=== PATIENT | female | born 1990 | race Caucasian/White ===

== ENCOUNTER 2018-11-08 14:25 | Inpatient (IN) | payer BC, MEDICAID ==
[~2018-11-08] VITALS: Ht 157.5 cm; Wt 120.0 kg
[~2018-11-08 14:25] MED LIST: IBUP-1222 PO; METH250T3 PO; METH500T11 PO; OXYC-302 PO; PREN1TAB60 PO
[2018-11-08] MEDS ORDERED: FENTANYL/BUPIV./NS/PF 250 ML EPIDCONT SCH (15:01)
[2018-11-08] MEDS ORDERED: LACTATED RINGERS 1,000 ML IV SCH ×2 (15:01)
[2018-11-08] MEDS ORDERED: OXYTOCIN 30U/ 0.9% NaCL 500ML 500 ML IV ONE (15:01)
[2018-11-08] MEDS ORDERED: OXYTOCIN 30U/ 0.9% NaCL 500ML 500 ML IV PRN (15:01)
[2018-11-08] MEDS ORDERED: D5%-LACTATED RINGERS 1,000 ML IV SCH (15:01)
[2018-11-08 15:29] LABS: BASOPHILS # (AUTO) 0.02 x10^3/uL (0-0.1); BASOPHILS % (AUTO) 0 % (0-1); EOSINOPHILS # (AUTO) 0.02 x10^3/uL (0-0.4); EOSINOPHILS % (AUTO) 0 % (1-7); LYMPHOCYTES # (AUTO) 2.24 x10^3/uL (1-3.4); LYMPHOCYTES % (AUTO) 13 % (22-44); MD NO; MEAN CORPUSCULAR HEMOGLOBIN 27.1 pg (27.0-34.8); MEAN CORPUSCULAR VOLUME 79.7 fL (80-100); MEAN PLATELET VOLUME 10.3 fL (7.4-10.4); MONOCYTES # (AUTO) 0.64 x10^3/uL (0.2-0.8); MONOCYTES % (AUTO) 4 % (2-9); NEUTROPHILS # (AUTO) 14.62 x10^3/uL (1.8-6.8); NEUTROPHILS % (AUTO) 83 % (42-75); PLATELET COUNT 220 x10^3/uL (130-400); RED BLOOD COUNT 4.75 x10^6/uL (3.82-5.3); RED CELL DISTRIBUTION WIDTH 14.7 % (9.6-15.2)
[2018-11-08 15:30] LABS: MICROSCOPIC INDICATED
[2018-11-08] MEDS ORDERED: MISOPROSTOL 25 MCG TABLET VG PRN (15:30)
[2018-11-08] MEDS ORDERED: ONDANSETRON 2MG/ML, 2ML IVPush PRN (15:30)
[2018-11-08] MEDS ORDERED: PENICILLIN GK 5,000,000 UNITS in DEXTROSE 5% 100 ML IVPB ONE (15:30)
[2018-11-08] MEDS ORDERED: FENTANYL PF 100 MCG/2ML IV PRN (15:30)
[2018-11-08] MEDS ORDERED: LACTATED RINGERS 1,000 ML IVBOLUS PRN (15:30)
[2018-11-08] MEDS ORDERED: FENTANYL PF 500 MCG, BUPIVACAINE/PF 0.5%, 30ML 62.5 ML in SODIUM CHLORIDE 0.9% 177.5 ML EPIDCONT SCH (15:30)
[2018-11-08] MEDS ORDERED: NEWBORN KIT ONE (15:34)
[2018-11-08] MEDS ORDERED: LIDOCAINE 1%, 20ML ONE (15:35)
[2018-11-08] MEDS ORDERED: MISOPROSTOL 200 MCG TABLET ONE (15:35)
[2018-11-08] MEDS ORDERED: OXYTOCIN 30U/ 0.9% NaCL 500ML 500 ML ONE (15:35)
[2018-11-08] MEDS ORDERED: MISOPROSTOL 25 MCG TABLET ONE (15:39)
[2018-11-08 15:42] LABS: ALANINE AMINOTRANSFERASE 32 U/L (12-78); ALBUMIN 2.6 g/dL (3.4-5.0); ANION GAP 9 mmol/L (5-15); CHLORIDE 109 mmol/L (98-107); CREATININE 0.44 mg/dL (0.55-1.02)
[2018-11-08 15:44] LABS: ALKALINE PHOSPHATASE 123 U/L (45-117); BILIRUBIN,TOTAL 0.1 mg/dL (0.2-1.0); TOTAL PROTEIN 6.2 g/dL (6.4-8.2)
[2018-11-08 15:54] VITALS: BP 170/102
[2018-11-08 15:54] LABS: BILIRUBIN, DIRECT < 0.1 mg/dL (0.1-0.2)
[2018-11-08] MEDS ORDERED: AMLO-335 PO (17:06)
[2018-11-08] MEDS ORDERED: ASPI-515 PO (17:06)
[2018-11-08] MEDS ORDERED: FERR324T5 PO (17:07)
[2018-11-08] MEDS ORDERED: FLUCONAZOLE 100 MG TABLET PO ONE (18:00)
[2018-11-08] MEDS ORDERED: CALCIUM CARBONATE 500 MG TAB.CHEW ONE (18:54)
[2018-11-08] MEDS: CALCIUM CARBONATE 500 MG TAB.CHEW PO PRN (18:55)
[2018-11-08] MEDS ORDERED: FLUCONAZOLE 50 MG TABLET PO ONE (19:30)
[2018-11-08] MEDS: PENICILLIN GK 2,500,000 UNITS in DEXTROSE 5% 100 ML IVPB SCH (20:11)
[2018-11-08] MEDS ORDERED: LABETALOL 5MG/ML, 20ML IVPush PRN ×3 (21:00)
[2018-11-08] MEDS ORDERED: hydrALAzine 20 MG/ML, 1ML IVPush ONE (21:00)
[2018-11-08] MEDS ORDERED: LABETALOL 5 MG/ML SYRINGE IVPush PRN (21:30)
[2018-11-08] MEDS ORDERED: ACETAMINOPHEN 325 MG TABLET PO PRN (23:00)
[2018-11-09] MEDS ORDERED: OXYTOCIN 30U/ 0.9% NaCL 500ML 500 ML ONE (00:04)
[2018-11-09] MEDS: PENICILLIN GK 2,500,000 UNITS in DEXTROSE 5% 100 ML IVPB SCH ×4 (00:10→12:40)
[2018-11-09] MEDS ORDERED: FENTANYL PF 100 MCG/2ML ONE ×2 (00:19→05:14)
[2018-11-09] MEDS: FENTANYL PF 100 MCG/2ML IVPush PRN ×2 (00:20→05:19)
[2018-11-09] MEDS ORDERED: ACETAMINOPHEN 325 MG TABLET ONE (04:17)
[2018-11-09] MEDS ORDERED: LACTATED RINGERS 1,000 ML IV SCH (06:04)
[2018-11-09] MEDS ORDERED: FENTANYL/BUPIV./NS/PF 250 ML EPIDCONT SCH (06:04)
[2018-11-09] MEDS ORDERED: NALOXONE 0.4 MG/ML, 1ML IVPush PRN (06:30)
[2018-11-09] MEDS ORDERED: LACTATED RINGERS 1,000 ML IVBOLUS PRN (06:30)
[2018-11-09] MEDS ORDERED: EPHEDRINE 50 MG/ML, 1ML IVPush PRN (06:30)
[2018-11-09] MEDS: AMLODIPINE 10 MG TAB PO SCH (09:00)
[2018-11-09] MEDS ORDERED: METHYLDOPA 250 MG TABLET PO SCH (09:00)
[2018-11-09] MEDS ORDERED: CALCIUM CARBONATE 500 MG TAB.CHEW ONE (12:38)
[2018-11-09] MEDS: CALCIUM CARBONATE 500 MG TAB.CHEW PO PRN (12:39)
[2018-11-09] MEDS ORDERED: BUPIVACAINE 0.25% ONE (13:36)
[2018-11-09] MEDS ORDERED: DIPH,PERTUSS(ACELL),TET VAC/PF NC IM-VACC PRN (14:30)
[2018-11-09] MEDS ORDERED: BISACODYL 10 MG SUPP PR PRN (14:30)
[2018-11-09] MEDS ORDERED: MISOPROSTOL 200 MCG TABLET PR PRN (14:30)
[2018-11-09] MEDS ORDERED: ONDANSETRON 2MG/ML, 2ML IV PRN (14:30)
[2018-11-09] MEDS ORDERED: METOCLOPRAMIDE 5 MG/ML, 2ML IV PRN (14:30)
[2018-11-09] MEDS ORDERED: GLYCERIN ADULT SUPP PR PRN (14:30)
[2018-11-09] MEDS ORDERED: ACETAMINOPHEN 325 MG TABLET PO PRN ×2 (14:30)
[2018-11-09] MEDS ORDERED: RHOGAM FROM BLOOD BANK 1 NOTE EA IM/IV ONE (14:30)
[2018-11-09] MEDS ORDERED: CARBOPROST TROMETHAMINE 250 MCG/ML, 1ML IM PRN (14:30)
[2018-11-09] MEDS: OXYTOCIN 30U/ 0.9% NaCL 500ML 500 ML IV SCH (14:59)
[2018-11-09] MEDS ORDERED: IBUPROFEN 600 MG TABLET ONE (14:59)
[2018-11-09] MEDS: IBUPROFEN 600 MG TABLET PO PRN ×2 (15:00→22:40)
[2018-11-09] MEDS: METHYLDOPA 250 MG TABLET PO SCH ×2 (16:00→21:15)
[2018-11-09 17:36] VITALS: BP 136/85
[2018-11-09] MEDS: OXYcodone/APAP 5/325MG TABLET PO PRN ×2 (17:43→22:40)
[2018-11-09 22:00] VITALS: BP 135/83
[2018-11-09] MEDS: DOCUSATE 100 MG CAPSULE PO PRN (22:40)
[2018-11-10] MEDS: OXYTOCIN 30U/ 0.9% NaCL 500ML 500 ML IV SCH ×2 (00:23→10:23)
[2018-11-10 00:40] VITALS: BP 127/77
[2018-11-10] MEDS: OXYcodone/APAP 5/325MG TABLET PO PRN ×3 (03:42→14:09)
[2018-11-10 03:50] VITALS: BP 135/90
[2018-11-10] MEDS: IBUPROFEN 600 MG TABLET PO PRN ×2 (07:51→14:09)
[2018-11-10] MEDS: DOCUSATE 100 MG CAPSULE PO PRN (07:51)
[2018-11-10 08:10] VITALS: BP 129/84
[2018-11-10] MEDS ORDERED: PRENATAL VIT/IRON/FA 1 EACH TABLET PO SCH (09:00)
[2018-11-10] MEDS: METHYLDOPA 250 MG TABLET PO SCH (09:00)
[2018-11-10] MEDS: AMLODIPINE 10 MG TAB PO SCH (09:00)
[2018-11-10] MEDS ORDERED: OXYC-302 PO (12:09)
[2018-11-10] MEDS ORDERED: IBUP-1222 PO (12:10)
[2018-11-10 12:25] VITALS: BP 151/96
== END 2018-11-10 14:40 | disposition home or self-care (01) | DRG 807 ==
LOC: 2NE 14:25 → LDIP 22:18 → 2NW 11-09 17:16
PROVIDERS: ADMIT Obstetrics & Gynecology Gynecology; ATTEND Obstetrics & Gynecology Gynecology
PROC: 10E0XZZ Delivery of Products of Conception, External Approach (ICD-10-PCS; principal; 2018-11-09)
PROC: 3E0R3BZ Introduction of Anesthetic Agent into Spinal Canal, Percutaneous Approach (ICD-10-PCS; 2018-11-09)
PROC: 00HU33Z Insertion of Infusion Device into Spinal Canal, Percutaneous Approach (ICD-10-PCS; 2018-11-09)
DX: O11.4 Pre-existing hypertension with pre-eclampsia, complicating childbirth (principal); Z37.0 Single live birth; O99.824 Streptococcus B carrier state complicating childbirth; Z3A.37 37 weeks gestation of pregnancy; Z82.49 Family history of ischemic heart disease and other diseases of the circulatory system
CPT/HCPCS: 36415; J7121; 80053; 81001; 82248; 82570; 82803; 84156; 84550; 85025; 86850; 86900; G0378; J2540; J3010; J2590; J7120

== ENCOUNTER 2020-11-12 17:52 | Emergency (ER) | payer BC, MEDICAID ==
[~2020-11-12] VITALS: Ht 157.5 cm; Wt 115.1 kg
[~2020-11-12 17:52] MED LIST changes: +AMLO-335 PO; +ASPI-963 PO; +FERR324T5 PO; -OXYC-302 PO; +OXYC1TAB14 PO
--- NOTE | 2020-11-12 19:09 | NUR ---
PT AMBULATORY TO ROOM 35 W/ C/O INCREASED CRAMPING AND IRREGULAR PERIODS STARTED 6 MONTHS AGO. STATES HER CRAMPS HAVE GOTTEN WORSE AND FOR A LOT LONGER. PT STATES PAIN VERY BAD. HER OBGYN WEB MARKETING COORDINATOR DR. PARKS TOLD PT THAT IF PAIN WAS THAT SEVERE TO GO TO ER. PT RESTING ON GURNEY. NADN. MONITORS APPLIED. BP ELEVATED. PT STATES HX. IS ON BP MEDS LAST TIME TOOK MED WAS THIS AM.
--- NOTE | 2020-11-12 19:12 | NUR ---
PT ALSO STATES BOWERS. STATES THIS HAPPENS WHEN HER BP IS ELEVATED. NORMALLY TAKE LABETOLOL 50 MG BID. Addendum: 11/12/20 at 1913 by BNICHOLS AMLODIPINE 10 MG QD.
[2020-11-12] MEDS ORDERED: MORPHINE SULFATE 4 MG/ML, 1ML IVPush PRN (19:30)
[2020-11-12] MEDS ORDERED: SODIUM CHLORIDE FLUSH 10ML SYR IVF ONE (19:30)
[2020-11-12] MEDS ORDERED: ONDANSETRON 2MG/ML, 2ML IVPush ONE (19:30)
[2020-11-12] MEDS ORDERED: MORPHINE SULFATE 4 MG/ML, 1ML ONE (19:43)
[2020-11-12] MEDS ORDERED: ONDANSETRON 2MG/ML, 2ML ONE (19:43)
[2020-11-12 19:48] LABS: BASOPHILS % (AUTO) 1 % (0-1); EOSINOPHILS % (AUTO) 2 % (1-7); LYMPHOCYTES % (AUTO) 26 % (22-44); MEAN CORPUSCULAR HEMOGLOBIN 20.7 pg (27.0-34.8); MEAN CORPUSCULAR HGB CONC 31.2 g/dL (32.4-35.8); MEAN PLATELET VOLUME 8.9 fL (7.4-10.4); MONOCYTES % (AUTO) 6 % (2-9); NEUTROPHILS % (AUTO) 66 % (42-75); PLATELET COUNT 319 x10^3/uL (130-400); RED CELL DISTRIBUTION WIDTH 17.6 % (9.6-15.2)
--- NOTE | 2020-11-12 19:51 | NUR ---
PT TAKEN TO US IN STABLE CONDITION. BP SLIGHTLY IMPROVED.
[2020-11-12 19:56] LABS: ALANINE AMINOTRANSFERASE 26 U/L (12-78); ALBUMIN 3.9 g/dL (3.4-5.0); ANION GAP 7 mmol/L (5-15); CHLORIDE 108 mmol/L (98-107); CREATININE 0.62 mg/dL (0.55-1.02)
[2020-11-12 20:01] LABS: ALKALINE PHOSPHATASE 69 U/L (45-117); BILIRUBIN,TOTAL 0.4 mg/dL (0.2-1.0); TOTAL PROTEIN 7.4 g/dL (6.4-8.2)
[2020-11-12 20:15] LABS: MICROSCOPIC AUTO
[2020-11-12 20:16] LABS: MD MORPH REVIEW ONLY
--- NOTE | 2020-11-12 20:50 | NUR ---
REPORT FROM ALEXANDRU RN WITH ASSESSMENT PATIENT COMPLAINING OF PELVIC RAMPING AT 10/10 BLOOD PRESSURE ALSO REMAINS ELEVATED- WITH FURTHER ASSESSMENT PATIENT REPORTS SHE DID NOT TAKE HER NIGHT TIME ANTI-HYPERTENSIVES (SHE TAKES 3 SEPERATE ONES AT NIGHT). ALSO WITHOUT VISION ABNORMALITIES OR HEADACHE
[2020-11-12 20:55] VITALS: BP 168/104
[2020-11-12 21:00] LABS: ANISOCYTOSIS 1+; HYPOCHROMIA 1+; MICROCYTOSIS 1+; OVALOCYTES 1+; POLYCHROMASIA 1+
[2020-11-12 21:01] LABS: <PLATELET ESTIMATE> ADEQUATE; LARGE PLATELETS 1+
[2020-11-12 21:02] LABS: GIANT PLATELETS 1+
[2020-11-12] MEDS ORDERED: KETOROLAC 30 MG/1 ML ONE (21:22)
[2020-11-12] MEDS ORDERED: KETOROLAC 30 MG/1 ML IVPush ONE (21:30)
--- NOTE | 2020-11-12 21:30 | NUR ---
MEDICATED PER EMAR FOR 1010 PELVIC CRAMPING
== END 2020-11-12 22:15 | disposition home or self-care (01) ==
LOC: ED 20:49
DX: R10.31 Right lower quadrant pain (principal); R10.32 Left lower quadrant pain; N94.4 Primary dysmenorrhea; I10 Essential (primary) hypertension
CPT/HCPCS: 36415; 76830; 80053; 81001; 84703; 85025; 87086; 96374; 96375; 99284; J1885; J2270; J2405

== ENCOUNTER 2021-03-28 11:53 | Emergency (ER) | payer BC ==
[~2021-03-28] VITALS: Ht 157.5 cm; Wt 118.0 kg
[~2021-03-28 11:53] MED LIST changes: +OXYC1TAB12 PO; -OXYC1TAB14 PO
--- NOTE | 2021-03-28 12:55 | NUR ---
occupational health specialist note: Pt to room from lobby.
[2021-03-28] MEDS ORDERED: ENAL10TA9 PO (13:10)
[2021-03-28] MEDS ORDERED: AMLO-211 PO (13:10)
[2021-03-28] MEDS ORDERED: SERT-237 PO (13:10)
[2021-03-28] MEDS ORDERED: LABE100T6 PO (13:10)
[2021-03-28] MEDS ORDERED: HYDROcodone/APAP 5/325 TABLET ONE (13:54)
[2021-03-28 14:00] VITALS: BP 147/91
[2021-03-28] MEDS ORDERED: HYDROcodone/APAP 5/325 TABLET PO PRN (14:00)
--- NOTE | 2021-03-28 14:05 | NUR ---
PT IS IN HOSPITAL GOWN. PT ON VITALS MONITORS. PT MEDICATED FOR PAIN PER EMAR.
[2021-03-28 14:12] LABS: BASOPHILS % (AUTO) 1 % (0-1); EOSINOPHILS % (AUTO) 2 % (1-7); LYMPHOCYTES % (AUTO) 23 % (22-44); MEAN CORPUSCULAR HEMOGLOBIN 23.1 pg (27.0-34.8); MEAN CORPUSCULAR HGB CONC 32.5 g/dL (32.4-35.8); MEAN PLATELET VOLUME 9.1 fL (7.4-10.4); MONOCYTES % (AUTO) 5 % (2-9); NEUTROPHILS % (AUTO) 70 % (42-75); PLATELET COUNT 304 x10^3/uL (130-400); RED BLOOD COUNT 5.32 x10^6/uL (3.82-5.3); RED CELL DISTRIBUTION WIDTH 17.6 % (9.6-15.2)
--- NOTE | 2021-03-28 14:19 | NUR ---
PT IN US AT THIS TIME.
[2021-03-28 14:24] LABS: ALANINE AMINOTRANSFERASE 30 U/L (12-78); ALBUMIN 3.4 g/dL (3.4-5.0); ANION GAP 5 mmol/L (5-15); CALCIUM 8.5 mg/dL (8.5-10.1); CHLORIDE 105 mmol/L (98-107)
[2021-03-28 14:29] LABS: ALKALINE PHOSPHATASE 71 U/L (45-117); BILIRUBIN,TOTAL 0.3 mg/dL (0.2-1.0)
--- NOTE | 2021-03-28 14:43 | NUR ---
PT REMAINS IN US
--- NOTE | 2021-03-28 15:41 | NUR ---
PT RESTING COMFORTABLY IN BED AT THIS TIME. WILL CONTINUE TO MONITOR.
== END 2021-03-28 16:32 ==
LOC: ED 15:06
DX: N94.6 Dysmenorrhea, unspecified (principal); I10 Essential (primary) hypertension
CPT/HCPCS: 36415; 76830; 80053; 84703; 85025; 99284